=== PATIENT | male | born 1945 | race Caucasian/White ===

== ENCOUNTER 2017-09-03 11:25 | Emergency (ER) | payer BC ==
[~2017-09-03] VITALS: Ht 160 cm; Wt 81.0 kg
[2017-09-03 11:28] VITALS: Ht 160 cm; Wt 81.0 kg
--- NOTE | 2017-09-03 12:27 | ERD ---
ER Documentation Chief Complaint Chief Complaint RIGHT KNEE PAIN HPI 62y/o 9 male patient with history of gout, presents to the emergency department with his c/o gradual onset of right knee pain, constant, that started 4 days ago. The pain is sharp, rated 8/10, without radiation. The symptoms are probably caused by gout and are associated with localized edema and difficulty walking. Aggravating factors: Direct pressure, walking. Alleviating factors: Partially relieved by colchicine and ibuprofen. Denies fever, chills, N/V/D. Last episode 3 months ago. Treatment attempted: Ibuprofen. History was given by patient. ROS SYSTEMIC symptoms: no fever, chills, no night sweats, no weight loss EYE symptoms: No blurred vision, no eye discharge OTOLARYNGEAL symptoms: No hearing loss. No ear pain, no sore throat CARDIOVASCULAR symptoms: No chest pain or discomfort, no palpitations. PULMONARY symptoms: No dyspnea, no cough, no wheezing. GASTROINTESTINAL symptoms: No abdominal pain, no nausea, no vomiting, no diarrhea MUSCULOSKELETAL symptoms: Per HPI NEUROLOGY symptoms: No confusion, no syncope, no numbness or tingling. SKIN: No rashes Medications Home Meds Active Scripts Hydrocodone/Acetaminophen ([place] 5-325 Tablet) 1 Each Tablet, 1 EACH PO TID Y for SEVERE PAIN LEVEL 7-10, #20 TAB Prov:ERIC MILLER MD 09/03/17 Colchicine* (Colcrys*) 0.6 Mg Tablet, 0.6 MG PO 2 tab po onset sympt, #10 TAB Prov:ERIC MILLER MD 09/03/17 Allergies Allergies: Coded Allergies: No Known Allergy (Unverified , 09/03/17) Physical Exam Vitals Vital Signs Date Time Temp Pulse Resp B/P Pulse Ox O2 Delivery O2 Flow Rate FiO2 09/03/17 11:28 99.6 65 18 168/75 99 Physical Exam Patient is in mild distress due to pain, vital signs stable. Alert and fully oriented. EYES: PERRLA, EOMI, Sclera and conjunctiva appear normal. EARS: Canals clear, tympanic membranes WNL THROAT: Normal oropharynx. NECK: Supple, No lymphadenopathy. Full ROM without pain or tenderness. HEART: RRR, no rubs, murmurs, clicks or gallops. LUNGS: Clear to auscultation. ABDOMEN: Soft, non-tender without masses or hepatosplenomegaly. EXTREMITIES: Right knee: With edema, tenderness to palpation, decreased range of motion due to pain and mild effusion BACK: Full ROM, no deformity, normal back exam NEURO: Cranial nerves grossly intact, no motor or sensory deficit Results 24 hrs Current Medications Medications (Trade) Dose Ordered Sig/Demetris Route PRN Reason Start Time Stop Time Status Last Admin Dose Admin Ketorolac Tromethamine (Toradol) 30 mg ONCE STAT IM 09/03/17 12:36 09/03/17 12:37 DC 09/03/17 12:42 Procedures/MDM 71y/o male patient with history of gout, presents to the ED c/o right knee pain for 4 days. Vital signs stable, Physical exam revealed a right knee with edema , warmth to palpation and tender, with decreased range of motion. Differential diagnosis include but not limited to: Musculoskeletal injury, arthritis, pseudogout, less likely septic arthritis or fracture. Physical examination and clinical presentation consistent most likely with acute gouty attack of the right knee. During the ED course the patient remained stable, no new complaints. Received treatment with Toradol IM presenting overall improvement of the symptoms. Results and clinical impression discussed with patient who agrees with management. The patient is stable to be treated outpatient and will be discharged home with a Rx for colchicine, prednisone and [place] as needed. Side effects of prescribed medications (headache, rash, nausea, vomiting, diarrhea) were reviewed. Side effects of prescribed opiates (drowsiness, habituation) were reviewed. Side effects of prescribed NSAID medication (GI distress, edema, bleeding, HTN) were reviewed. The patient was instructed to follow up with the primary care provider in the next 48h. If symptoms persist, worsen or new symptoms develop, then patient should return to the ED immediately. Instructions explained and given to patient in German with acknowledgment and demonstrated understanding. Disclaimer: Inadvertent spelling and grammatical errors are likely due to EHR/ dictation software use and do not reflect on the overall quality of patient care. Also, please note that the electronic time recorded on this note does not necessarily reflect the actual time of the patient encounter. Departure Diagnosis: Primary Impression: Gout, arthritis Condition: Stable Patient Instructions: Gouty Arthritis Additional Instructions: Muchas ramona por [facility] para bran servicio. Esperamos que en bran visita a la sherry de emergencia bran problema medico haya sido solucionado y que se sienta mucho mejor. Para estar seguros que bran mejoria sigue en proceso, le pedimos el favor de hacer erin ej de seguimiento medico con bran doctor primario en los proximos 2-4 steele. Lleve con usted estos documentos y las medicinas recetadas. Si miguel sintomas empeoran y no puede mame a bran doctor, por favor regrese a sherry de emergencia. En lobito que usted no tenga un mdico de atencin primaria: Llame al mdico o clnica comunitaria de referencia que aparece abajo obed las horas de consultorio para hacer erin ej para que le vean. CLINICAS: [facility] [phone] [facility] [place] [phone] [address] [facility] [phone] [address] [facility]. [facility] [phone] [address] [facility]. [place] [id number] [phone] [facility]. [phone] MD Sep 03, 2017 12:27
[2017-09-03] MEDS ORDERED: KETOROLAC 30 MG INJ IM STA (12:36)
[2017-09-03] MEDS ORDERED: COLC0.6T6 PO (13:15)
[2017-09-03] MEDS ORDERED: HYDR-906 PO (13:15)
[2017-09-03] MEDS ORDERED: CANE1EAC26 MC (13:58)
== END 2017-09-03 14:11 | disposition home or self-care (01) ==
LOC: FTE 11:25
DX: M10.9 Gout, unspecified (principal); M17.9 Osteoarthritis of knee, unspecified
CPT/HCPCS: 96372; 99284; J1885

== ENCOUNTER → 2019-02-05 | Emergency (ER) | payer BC ==
[~2019-02-05] VITALS: Ht 167.6 cm; Wt 72.0 kg
[~2019-02-05] MED LIST: CANE1EAC26 MC; COLC0.6T6 PO; HYDR-4011 PO; PRED20TA PO; predniSONE 20 MG TAB PO ONE
[2019-02-05 07:58] VITALS: BP 163/76; PULSE 84; RESP 18; Ht 167.6 cm; Wt 72.0 kg
--- NOTE | 2019-02-05 10:08 | ERD ---
ER Documentation Chief Complaint Chief Complaint pt bib self with c/o bilatteral foot pain, left meds out of state HPI 73-year-old male presents with complaint of gout attack. Patient states that he is has a history of gout for which he takes allopurinol but he ran out of medication and [place]. States he has not taken his allopurinol for 3 months. Gout attack started couple days ago in the bilateral feet. States the pain is an 8 out of 10. Pain is constant. Made worse with palpation. Denies any fevers, numbness, chills. Denies any kidney problems. ROS All systems reviewed and are negative except as per history of present illness. Medications Home Meds Active Scripts Prednisone* (Prednisone*) 20 Mg Tab, 40 MG PO DAILY for gout for 7 Days, TAB Discontinue once symptoms resolve. Prov:KARINE KASPER 02/05/19 Cane (Cane) 1 Each Each, 1 EACH MC, #1 Prov:ERIC MILLER MD 09/03/17 Hydrocodone/Acetaminophen ([place] 5-325 Tablet) 1 Each Tablet, 1 EACH PO TID PRN for SEVERE PAIN LEVEL 7-10, #20 TAB Prov:ERIC MILLER MD 09/03/17 Colchicine* (Colcrys*) 0.6 Mg Tablet, 0.6 MG PO 2 tab po onset sympt, #10 TAB Prov:ERIC MILLER MD 09/03/17 Allergies Allergies: Coded Allergies: No Known Allergy (Unverified , 09/03/17) PMhx/Soc History of Surgery: No Anesthesia Reaction: No Hx Neurological Disorder: No Hx Respiratory Disorders: No Hx Cardiac Disorders: Yes (HTN,HYPERCHOLESTEROL) Hx Miscellaneous Medical Probl: Yes (gout) Hx Alcohol Use: No Hx Substance Use: No Hx Tobacco Use: No Smoking Status: Never smoker FmHx Family History: No diabetes, No coronary disease, No other Physical Exam Vitals Vital Signs Date Temp Pulse Resp B/P (MAP) Pulse Ox O2 O2 Flow FiO2 Time Delivery Rate 02/05/19 98.3 84 18 163/76 98 07:58 (105) Physical Exam Const: No acute distress Head: Atraumatic Eyes: Normal Conjunctiva ENT: Normal External Ears, Nose and Mouth. Neck: Full range of motion. No meningismus. Resp: Clear to auscultation bilaterally Cardio: Regular rate and rhythm, no murmurs Abd: Soft, non tender, non distended. Normal bowel sounds Skin: No petechiae or rashes Back: No midline or flank tenderness Ext: No cyanosis. Erythema and edema noted of the lateral aspect of first MTP bilaterally. Tenderness to palpation same area. Full range of motion. No bony deformities noted. Sensation is intact. No pallor or cyanosis. Neur: Awake and alert Psych: Normal Mood and Affect Results 24 hrs Current Medications Medications Dose Sig/Demetris Start Time Status Last (Trade) Ordered Route PRN Stop Time Admin Dose Reason Admin Prednisone 40 mg ONCE ONCE 02/05/19 DC 02/05/19 (Prednisone) PO 09:30 02/05/19 09:20 09:31 Procedures/MDM MDM: Presentation consistent with gout attack. Patient was given prednisone in the ER and discharged with short course of prednisone as well. Patient instructed to stop taking prednisone once the gout attack resolves. I told patient needs to follow-up with his primary care doctor and have them send him a prescription for allopurinol as he has not taken it in 3 months. Patient agreed to do so. I have low suspicion for neurovascular compromise, compartment syndrome, fracture, osteomyelitis, septic joint, or other emergent condition. Patient discharged with strict ER precautions. Patient advised to follow up with PMD. All questions answered at discharge. Departure Diagnosis: Primary Impression: Gout Gout site: foot Gout etiology: unspecified cause Chronicity: acute Laterality: unspecified laterality Qualified Codes: M10.9 - Gout, unspecified Condition: Stable Patient Instructions: Treating Gout Attacks, Gout Diet Referrals: [facility] YOU HAVE RECEIVED A MEDICAL SCREENING EXAM AND THE RESULTS INDICATE THAT YOU DO NOT HAVE A CONDITION THAT REQUIRES URGENT TREATMENT IN THE EMERGENCY DEPARTMENT. FURTHER EVALUATION AND TREATMENT OF YOUR CONDITION CAN WAIT UNTIL YOU ARE SEEN IN YOUR DOCTORS OFFICE WITHIN THE NEXT 1-2 DAYS. IT IS YOUR RESPONSIBILITY TO MAKE AN APPOINTMENT FOR FOLOW-UP CARE. IF YOU HAVE A PRIMARY DOCTOR --you should call your primary doctor and schedule an appointment IF YOU DO NOT HAVE A PRIMARY DOCTOR YOU CAN CALL OUR PHYSICIAN REFERRAL HOTLINE AT IF YOU CAN NOT AFFORD TO SEE A PHYSICIAN YOU CAN CHOSE FROM THE FOLLOWING [facility] [address] [facility]. [facility] [address] [facility] [facility] [address] [facility] [address] [facility] [address] [facility]. [facility] [address] Additional Instructions: FOLLOW UP WITH YOUR PRIMARY CARE PHYSICIAN TOMORROW.Return to this facility if you are not improving as expected. KARINE KASPER February 05, 2019 10:08
== END | disposition home or self-care (01) ==
LOC: FTE 07:56
DX: M10.9 Gout, unspecified (principal)
CPT/HCPCS: 99283; J7512